=== PATIENT | male | born 1995 | race African-American/Black ===

== ENCOUNTER 2017-11-27 10:59 | Emergency (ER) | payer MEDICAID ==
[~2017-11-27] VITALS: Ht 177.8 cm; Wt 86.2 kg
[2017-11-27 11:23] VITALS: BP 130/77
[2017-11-27] MEDS ORDERED: Ketorolac 60mg Inj IM ONE (11:30)
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
[2017-11-27] MEDS ORDERED: Acetaminophen 500mg (ES) tab ORAL ONE (12:30)
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
[2017-11-27] MEDS ORDERED: NAPROXEN500 M2 ORAL (13:43)
[2017-11-27 13:52] VITALS: BP 124/71
== END 2017-11-27 13:53 | disposition home or self-care (01) ==
LOC: EDSEX 10:59 → EMR 12:37
DX: R51 Headache (principal); S13.4XXA Sprain of ligaments of cervical spine, initial encounter; S80.01XA Contusion of right knee, initial encounter; V43.52XA Car driver injured in collision with other type car in traffic accident, initial encounter; Y92.410 Unspecified street and highway as the place of occurrence of the external cause; J45.909 Unspecified asthma, uncomplicated
CPT/HCPCS: 70450; 72110; 96372; 99284